=== PATIENT | male | born 1990 | race Caucasian/White ===

== ENCOUNTER 2025-07-06 18:10 | Emergency (ER) | payer SELFPAY ==
[2025-07-06] MEDS: Buprenorphine/Naloxone 8-2 MG Tab.SL SL ONE (19:30)
== END 2025-07-06 20:34 | disposition home or self-care (01) ==
LOC: MW.ED 18:10
DX: Z76.0 Encounter for issue of repeat prescription (principal); Z75.3 Unavailability and inaccessibility of health-care facilities
CPT/HCPCS: 99281; J0574; 99283